=== PATIENT | male | born 1990 | race Caucasian/White ===

== ENCOUNTER 2024-12-29 19:29 | Emergency (ER) | payer OTHER ==
[~2024-12-29] VITALS: Ht 177.8 cm; Wt 155.0 kg
[2024-12-29 19:34] VITALS: BP 141/80; PULSE 95; RESP 18; TEMP 37.5; O2SAT 99
[2024-12-29 21:35] LABS: HEMATOCRIT. 44.3 % (42.0-52.0); HEMOGLOBIN. 14.4 g/dL (14.0-18.0); MEAN CORPUSCULAR HEMOGLOBIN 27.3 pg (28.0-32.0); MEAN CORPUSCULAR HGB CONC 32.5 g/dL (31.0-37.0); MEAN CORPUSCULAR VOLUME 83.8 fL (80.0-94.0); MEAN PLATELET VOLUME 8.9 fl (7.4-10.4); PLATELET 312 x1000/uL (130-400); RED BLOOD CELL COUNT 5.29 mill/uL (4.7-6.1); RED CELL DISTRIBUTION WIDTH 15.1 % (11.6-14.6); WHITE BLOOD COUNT 15.6 x1000/uL (4.5-11.0)
[2024-12-29 21:38] LABS: DIFFERENTIAL COMMENT 1
[2024-12-29 21:40] LABS: CHLORIDE 107 mEq/L (98-107); POTASSIUM 4.3 mEq/L (3.5-5.1); SODIUM 138 mEq/L (136-145)
[2024-12-29 21:41] LABS: CALCIUM 9.4 mg/dL (8.7-10.4); CARBON DIOXIDE 25 mEq/L (21-32)
[2024-12-29 21:46] LABS: CREATININE 0.8 mg/dL (0.6-1.3); GLUCOSE 154 mg/dL (70-105); UREA NITROGEN BLOOD 12 mg/dL (9-23)
[2024-12-29 21:48] LABS: ALANINE AMINOTRANSFERASE 60 IU/L (10-49); ALBUMIN 4.2 g/dL (3.2-4.8); ASPARTATE AMINOTRANSFERASE 34 IU/L (<34); BILIRUBIN DIRECT 0.2 mg/dL (<=3.0)
[2024-12-29 21:49] LABS: BILIRUBIN TOTAL 0.7 mg/dL (0.1-1.0); PROTEIN TOTAL 7.8 g/dL (6.0-8.3)
[2024-12-29 22:00] LABS: PLATELET ESTIMATE NORMAL
[2024-12-29] MEDS: ONDANSETRON 4MG ODT PO ONE (22:30)
[2024-12-30] MEDS: ONDANSETRON 4MG ODT PO ONE (00:15)
[2024-12-30 02:02] LABS: TROPONIN I HIGH SENSITIVITY < 4 ng/L (3.0-53)
[2024-12-30] MEDS ORDERED: ONDA-239 PO (02:25)
== END 2024-12-30 02:41 | disposition home or self-care (01) ==
LOC: ER 19:29
DX: R19.7 Diarrhea, unspecified (principal); R11.2 Nausea with vomiting, unspecified; Z79.899 Other long term (current) drug therapy
CPT/HCPCS: 99285; 80076; 80048; 83690; 85025; 84484; 36415; 93005; Q0162